=== PATIENT | male | born 1975 | race Caucasian/White ===

== ENCOUNTER 2017-06-12 14:11 | Inpatient (IN) | payer OTHER ==
[~2017-06-12] VITALS: Ht 193 cm; Wt 148.8 kg
[2017-06-12 14:33] VITALS: BP 147/104
--- NOTE | 2017-06-12 14:47 | NUR ---
Patient ambulated to bed 11 at this time.
--- NOTE | 2017-06-12 14:48 | NUR ---
42 M BIB SELF C/O TONGUE SWELLING @ 1330 HRS TODAY; PT STATES HE TOOK LISNOPRIL AND SOON AFTERWARDS HIS TONGUE BEGAN TO SWELL; RR ARE TACHYPENIC AND UNLABORED; NO SWELLING TO LIPS OR FACE; PT ABLE TO SPEAK IN FULL SENTENCES; AOX4 WITH EVEN AND STEADY GAIT; LUNGS CLEAR BL; PT DENIES ANY CP, SOB, OR COUGH AT THIS TIME; PATIENT STATES PAIN OF 0/10 AT THIS TIME; VSS; PATIENT POSITIONED FOR COMFORT; HOB ELEVATED; PT IS SINUS TACHYCARDIC ON CM; NO RESP DISTRESS NOTED; ER MD BENITEZ BY BEDSIDE EXAMINING PT; WILL CONTINUE TO MONITOR
[2017-06-12] MEDS ORDERED: methylPREDNISolone SS 125 MG/2 ML VIAL IVP ONE (14:50)
[2017-06-12] MEDS ORDERED: FAMOTIDINE 20 MG/2 ML VIAL IVP ONE (14:50)
[2017-06-12] MEDS ORDERED: diphenhydrAMINE 50 MG/ML VIAL IVP ONE (14:50)
[2017-06-12 15:01] LABS: BASOPHILS # (AUTO) 0.2 K/uL (0.00-0.22); BASOPHILS % (AUTO) 2.3 % (0.0-2.0); EOSINOPHILS # (AUTO) 0.1 K/uL (0-0.4); EOSINOPHILS % (AUTO) 0.7 % (0.0-4.0); HEMOGLOBIN 16.6 g/dL (12.0-18.0); LYMPHOCYTES # (AUTO) 3.1 K/uL (2.0-11.5); LYMPHOCYTES % (AUTO) 34.7 % (20.5-51.1); MEAN CORPUSCULAR HEMOGLOBIN 25 pg (27-31); MEAN CORPUSCULAR HGB CONC 32 g/dL (33-37); MEAN CORPUSCULAR VOLUME 79 fL (80-94); MONOCYTES # (AUTO) 0.4 K/uL (0.8-1.0); MONOCYTES % (AUTO) 4.6 % (1.7-9.3); NEUTROPHILS # (AUTO) 5.2 K/uL (1.8-7.7); NEUTROPHILS % (AUTO) 57.7 % (42.2-75.2); PLATELET COUNT (AUTO) 243 K/uL (140-450); RED BLOOD CELL COUNT(AUTO) 6.61 MIL/uL (4.20-6.10)
[2017-06-12 15:12] LABS: ANION GAP 13.3 (8-16); CARBON DIOXIDE 25.6 mmol/L (21-32); CREATININE 1.3 mg/dL (0.7-1.3); POTASSIUM 3.9 mmol/L (3.5-5.1)
[2017-06-12 15:18] LABS: ALBUMIN 3.9 g/dL (3.4-5.0); TOTAL BILIRUBIN 0.4 mg/dL (0.0-1.0)
--- NOTE | 2017-06-12 16:20 | NUR ---
PT TONGUE SWELLING DECREASED; PT TALKING IN FULL SENTENCES; NO RESP NOTED; NAD; WILL CONTINUE TO MONITOR
[2017-06-12 17:08] LABS: APPEARANCE,URINE CLEAR (CLEAR); BILIRUBIN,URINE NEGATIVE (NEGATIVE); BLOOD, URINE NEGATIVE (NEGATIVE); COLOR,URINE YELLOW (YELLOW); LEUKOCYTE ESTERASE ,URINE NEGATIVE (NEGATIVE); NITRITE, URINE NEGATIVE (NEGATIVE); PH,URINE 5.5 (5.0-9.0); UGLUCOSE 3+ (NEGATIVE)
[2017-06-12 17:13] LABS: BARBITURATE, URINE NEG. ng/ml (NEG <=200); BENZODIAZEPINE, URINE NEG. ng/mL (NEG <=200); CANNABINOID, URINE NEG. ng/mL (NEG <=50); COCAINE, URINE NEG. ng/mL (NEG <=300); OPIATE, URINE NEG. ng/mL (NEG <=2000); PHENCYCLIDINE SCREEN,URINE NEG. ng/mL (NEG <=25)
[2017-06-12 17:16] LABS: RBC,URINE 0-5 (RARE) /HPF (0-5); WBC,URINE NONE SEEN /HPF (0-5)
--- NOTE | 2017-06-12 18:48 | NUR ---
[facility] Adm[facility]. Will go to room ICU-3. Belongings list completed. Report to Lisa EM.
--- NOTE | 2017-06-12 19:05 | NUR ---
PT COME FROM ER BY W/C WITH 2 ER NURSE. PT ALERT,ORIENTED X4,PT ABLE TO WALK FROM W/C TO THE BED WITH OUT ANY DIFFICULTY.ON O2 AT 3LPM VIA N/C,NO S/S OF RESP DISTRESS ,NO SOB. BREATHS SOUND NORMAL.BILATERAL LUNGS SOUND CLEAR. DENIES ANY PAIN AT THIS TIME.IV LINE ON RIGHT HAND NO 20 GAUGE. PORT INTACT WELL. NPO MED ONLY FOR THIS TIME. PT IS ORDER FOR BED REST.ABD SOFT NON DISTENDED. NO EDEMA NOTED, ORIENTED PT WITH ROOM AND STAFF. PLACED ON STAFF ANESTHETIST AND PULSE SAT MONITOR .ABLE TO MOVE ALL EXTREMITIES FREELY.PT IS CONTINENT BOWEL AND BLADDER. VERBALIZE THE USE OF CALL LIGHT FOR ANY ASSISTANCE. CALL LIGHT IN REACH.
[2017-06-12] MEDS ORDERED: NACL 0.45% 1,000 ML IV SCH (19:15)
[2017-06-12] MEDS ORDERED: diphenhydrAMINE 50 MG/ML VIAL IVP PRN (19:20)
--- NOTE | 2017-06-12 19:30 | NUR ---
JADYN THE FATHER AT BED SIDE
--- NOTE | 2017-06-12 19:45 | NUR ---
PT URINATE USING URINAL X1 WITH 1000 CC URINE YELLOW CLEAR COLOR.
[2017-06-12 20:00] VITALS: BP 144/88
--- NOTE | 2017-06-12 20:00 | NUR ---
START IV 0.45 NS AT 50 CC/HR TO RIGHT HAND TOLERATED WELL.
--- NOTE | 2017-06-12 20:00 | NUR ---
NO SWELLING NOTED ON THE LIPS AND ON THE TONGUE NOTED.NO C/O ANY RESP.DISTRESS OR SOB.NO C/O ANY PAIN OR DISCOMFORT.
[2017-06-12 22:00] VITALS: BP 123/88
--- NOTE | 2017-06-12 22:00 | NUR ---
PT AWAKE AND WATCHING TV.
--- NOTE | 2017-06-12 23:22 | NUR ---
PT IS SLEEPING WELL
[2017-06-13] VITALS: BP 130/70
--- NOTE | 2017-06-13 | NUR ---
NO FEVER T.96.6, SLEEPING WELL,SOLU MEDROL GIVEN ORDER.
[2017-06-13] MEDS: methylPREDNISolone SS 40 MG/ML VIAL IVP SCH ×2 (00:12→05:29)
[2017-06-13 02:00] VITALS: BP 125/68
--- NOTE | 2017-06-13 02:00 | NUR ---
PT IS SLEEPING WELL,NO S/S OF RESP.DISTRESS,NO SOB NOTED. CALL LIGHT BETWEEN REACH.
[2017-06-13 04:00] VITALS: BP 137/79
--- NOTE | 2017-06-13 04:00 | NUR ---
PT URINATE USING URINAL WITH 700 CC YELLOW CLEAR URINE.
--- NOTE | 2017-06-13 05:00 | NUR ---
AM MED WAS GIVEN TOLERATED WELL.
--- NOTE | 2017-06-13 05:38 | NUR ---
BLOOD DRAWN FOR CBC AND BMP BY LAB PERSONAL.
[2017-06-13 05:51] LABS: ANION GAP 13.9 (8-16); CARBON DIOXIDE 25.4 mmol/L (21-32); CREATININE 1.1 mg/dL (0.7-1.3); POTASSIUM 4.3 mmol/L (3.5-5.1)
[2017-06-13 06:00] VITALS: BP 149/89
--- NOTE | 2017-06-13 06:55 | NUR ---
BLOOD SUGAR THIS MORNING 304, PT ALSO TAKING SOLU MEDROL . DR BAILEY MADE AWARE NO NEW ORDER FOR THE SUGAR PER MD . PT WAS NPO AT NIGHT. NEW ORDER GIVEN BY MD TO GIVE DIABETIC DIET REGULAR TEXTURE. ORDER NOTED AND CARRIED OUT.PT MADE AWARE.ALSO PER MD HE WILL BE COME THIS AM TO SEE PT.
--- NOTE | 2017-06-13 07:28 | NUR ---
REPORT GIVEN TO MATT EM AM SHIFT, PT IS AWAKE AND STABLE.
--- NOTE | 2017-06-13 07:29 | NUR ---
RECEIVED REPORT FROM IMAGE ARCHIVIST RN FOR CONTINUITY OF CARE. PT IS AWAKE, AAO X 4. SR ON MONITOR. LUNGS CLEAR BILATERALLY UPON AUSCULTATION. ON O2 3 LPM/NC. ABDOMEN SOFT, NON TENDER. BOWEL SOUNDS PRESENT X 4 QUADRANTS. NO EDEMA NOTED. NO SOB OR ACUTE DISTRESS AT THIS TIME. BED IN LOWEST POSITION. CALL LIGHT WITHIN REACH. WILL CONTINUE TO MONITOR.
[2017-06-13] MEDS ORDERED: PRED20TA5 PO (07:59)
[2017-06-13] MEDS ORDERED: AMLO5TAB PO (07:59)
[2017-06-13 08:00] VITALS: BP 141/86
[2017-06-13] MEDS ORDERED: DIPH25TA53 PO (08:00)
--- NOTE | 2017-06-13 08:00 | NUR ---
DR. BAILEY CAME TO SEE AND EXAMINE PT. WILL FOLLOW UP WITH NEW ORDERS.
[2017-06-13 08:07] VITALS: BP 146/91
--- NOTE | 2017-06-13 08:46 | NUR ---
MORNING MED GIVEN. PT TOLERATED WELL.
[2017-06-13] MEDS ORDERED: FAMOTIDINE 20 MG/2 ML VIAL IV SCH (09:00)
--- NOTE | 2017-06-13 09:05 | NUR ---
PT DISCHARGED HOME PER MD ORDER. PT IS STABLE, AAOX4, ABLE TO AMBULATE. PER PT, HE WILL BE DRIVING HOME BY HIMSELF. DISCHARGE INSTRUCTIONS GIVEN. PT VERBALIZED UNDERSTANDING. NO SOB OR OTHER SIGNS OF ACUTE DISTRESS NOTED UPON DISCHARGE.
--- NOTE | 2017-06-13 09:12 | NUR ---
PATIENT HAS BEEN SCREENED AND CATEGORIZED LOW RISK. PATIENT WILL BE SEEN WITHIN 7 DAYS OF ADMISSION. 06/19/[address]
--- NOTE | 2017-06-15 09:13 | NUR ---
CM NOTE PER PRODUCTION LABORER MICHAELLE, REVIEWS SHOULD ONLY BE SENT TO [facility] RETRO REVIEW FAXED TO [facility] # [phone]
== END 2017-06-13 09:05 | disposition home or self-care (01) | DRG 916 ==
LOC: MED 14:11 → MIC 18:59
PROVIDERS: ADMIT Internal Medicine Pulmonary Disease; ATTEND Internal Medicine Pulmonary Disease
DX: T78.3XXA Angioneurotic edema, initial encounter (principal); E66.01 Morbid (severe) obesity due to excess calories; I10 Essential (primary) hypertension; Z68.39 Body mass index [BMI] 39.0-39.9, adult; R73.9 Hyperglycemia, unspecified; G47.30 Sleep apnea, unspecified; Z79.899 Other long term (current) drug therapy; Y92.89 Other specified places as the place of occurrence of the external cause; T46.4X5A Adverse effect of angiotensin-converting-enzyme inhibitors, initial encounter
CPT/HCPCS: 36415; 71010; 80048; 80053; 80305; 81001; 82948; 85025; 85610; 87081; 93005; 96374; 96375; 99291; J1200; J2920; J2930; J3490; J7030; Q0092